=== PATIENT | female | born 2000 | race Caucasian/White ===

== ENCOUNTER 2020-04-18 21:45 | Inpatient (IN) | payer OTHER ==
[2020-04-18] MEDS ORDERED: DINOPROSTONE 10 MG VAGINAL SUPPOSITORY VG ONE (23:00)
[2020-04-18] MEDS ORDERED: DEXTROSE 5%-LACTATED RINGERS 1,000 ML IV SCH (23:00)
[2020-04-18 23:57] LABS: BASO % 0.2 % (0-2.0); EOS % 0.6 % (0-4.5); HEMATOCRIT 29.5 % (32.4-45.2); HEMOGLOBIN 9.8 GM/dL (10.7-15.3); LYMPH % 17.3 % (8-40); MCH 29.5 pg (25.7-33.7); MCHC 33.3 g/dl (32.0-36.0); MEAN CELL VOLUME 88.7 fl (80-96); MEAN PLT VOLUME 8.1 fl (7.5-11.1); MONO % 6.8 % (3.8-10.2); NEUT % 75.1 % (42.8-82.8); PLATELET COUNT 329 K/MM3 (134-434); RBC 3.32 M/mm3 (3.60-5.2); RDW 12.4 % (11.6-15.6); WHITE BLOOD COUNT 12.3 K/mm3 (4.0-10.0)
[2020-04-19 00:01] VITALS: BMI 23.1
[2020-04-19 00:28] LABS: INR 0.88 (0.83-1.09); PROTHROMBIN TIME (PATIENT) 10.4 SEC (9.7-13.0)
[2020-04-19 00:30] LABS: CALCIUM 8.6 mg/dL (8.5-10.1); CREATININE 0.4 mg/dL (0.55-1.3); POTASSIUM 3.6 mmol/L (3.5-5.1)
[2020-04-19 00:31] LABS: ACTIVATED PTT 25.6 SECONDS (25.2-36.5)
--- NOTE | 2020-04-19 03:46 | PN ---
Progress Note (short form) - Note Progress Note: 20 yo Primigravida, MILANA 04/30/20, EGA 38 weeks 2 days presented with ruptured membranes. VSS afebrile EFM - Baseline 130/min, moderate variability, accelerations, no decelerations Tocos - irregular Pelvic - cervix closed/long/posterior/vertex(bedside sonogram) Plan - Early term gestation with prelabor rupture of membranes for cervidil ripening Cervidil inserted, Anticipate vaginal delivery.
--- NOTE | 2020-04-19 07:11 | HP ---
Past Medical History - Admission Chief Complaint: Leakage of fluid History of Present Illness: 20 yo , @ 38 weeks gestation, EDC 04/30/20, admitted for spontaneous rupture of membrane. Upon admission she was finger tip. History Source: Patient Limitations to Obtaining History: No Limitations - Past Medical History ...: 1 ...Para: 0 ...Term: 0 ...: 0 ...Spon : 0 ...Induced : 0 ...Living Children: 0 ...Multiple Gestation: 0 ...EDC by Sono: 04/30/20 - Past Surgical History Past Surgical History: Yes: None Hx Myomectomy: No Hx Transabdominal Cerclage: No - Smoking History Smoking history: Never smoked Have you smoked in the past 12 months: No - Alcohol/Substance Use Hx Alcohol Use: No History of Substance Use: reports: None - Social History Usual Living Arrangement: Yes: With Parent History of Recent Travel: No Home Medications - Allergies Allergies/Adverse Reactions: Allergies Allergy/AdvReac Type Severity Reaction Status Date / Time No Known Allergies Allergy Verified 04/18/20 22:30 - Home Medications Home Medications: Ambulatory Orders Pnv No.95/Ferrous Fum/Folic AC [ Vitamin Tablet] 1 tab PO DAILY 04/18/20 Family Medical History Family History: Unremarkable Review of Systems - Review of Systems Constitutional: reports: No Symptoms Eyes: reports: No Symptoms HENT: reports: No Symptoms Neck: reports: No Symptoms Cardiovascular: reports: No Symptoms Respiratory: reports: No Symptoms Gastrointestinal: reports: No Symptoms Genitourinary: reports: Other (Leakage of fluid) Musculoskeletal: reports: No Symptoms Integumentary: reports: No Symptoms Neurological: reports: No Symptoms Psychiatric: reports: No Symptoms Pain Intensity: 3 Physical Exam - Maternity Vital Signs: Vital Signs Temperature 98.2 F 04/19/20 06:00 Pulse Rate 74 04/19/20 06:00 Respiratory Rate 20 04/19/20 06:00 Blood Pressure 116/63 04/19/20 06:00 O2 Sat by Pulse Oximetry (%) Constitutional: Yes: Well Nourished Eyes: Yes: Conjunctiva Clear HENT: Yes: Atraumatic Neck: Yes: Supple Cardiovascular: Yes: Regular Rate and Rhythm Lungs: Clear to auscultation - Abdominal Exam/OB Number of Fetuses: Single Presentation: Vertex - Vaginal Exam/OB Vaginal Bleeding: No Amniotic Membrane Status: Ruptured Nitrazine Test: Positive Amniotic Fluid: Yes: Clear Presentation: Vertex/Position Station: -3 - Physical Exam Musculoskeletal: Yes: WNL Extremities: Yes: WNL ...Motor Strength: WNL Psychiatric: Yes: Alert, Oriented - Labs Lab Results: CBC, BMP 04/18/20 23:47 04/18/20 23:47 Problem List - Problems (1) 38 weeks gestation of Problems reviewed: Yes Code(s): Z3A.38 - 38 WEEKS GESTATION OF (2) Rupture of membranes with clear amniotic fluid Problems reviewed: Yes Code(s): RHJ5509 - Assessment/Plan 38 weeks gestation Spontaneous rupture of membrane Admit to L&D Cervidil induction
[2020-04-19] MEDS: DEXTROSE 5%-LACTATED RINGERS 1,000 ML IV SCH ×2 (10:16→17:22)
[2020-04-19] MEDS ORDERED: BUTORPHANOL TARTRATE 1 MG/ML VIAL ONE ×4 (10:35→15:15)
[2020-04-19] MEDS ORDERED: PROMETHAZINE HCL 25 MG/1 ML VIAL ONE ×2 (10:36→15:16)
[2020-04-19] MEDS: PROMETHAZINE HCL 25 MG/1 ML VIAL IVPB PRN ×2 (10:40→16:03)
[2020-04-19] MEDS: BUTORPHANOL TARTRATE 1 MG/ML VIAL IVPUSH PRN ×2 (10:43→15:25)
--- NOTE | 2020-04-19 15:42 | PD.OB.PROG ---
Past Medical History - Primary Care Physician Documenting Provider Type: Laborist - Admission History of Present Illness: 20yo admitted for induction after PROM. Pt c/o contractions. Due for removal of cervidil - Nursing Documentation Maternal Triage Index: Maternal Triage Index ( Priority 3, Prompt MFTI) Hemorrhage Risk Assessment: Risk Level Low Risk High Level Risk Factors for None Hemorrhage Medium Level Risk Factors for None of the above Hemorrhage Low Level Risk Factors for None of the above Hemorrhage Nursing Documentation Reviewed: Yes - Past Medical History ...: 1 ...Para: 0 ...Term: 0 ...: 0 ...Spon : 0 ...Induced : 0 ...Living Children: 0 ...Multiple Gestation: 0 ...EDC by Sono: 04/30/20 - Past Surgical History Past Surgical History: Yes: None - Smoking History Smoking history: Never smoked Have you smoked in the past 12 months: No - Alcohol/Substance Use Hx Alcohol Use: No History of Substance Use: reports: None - Social History History of Recent Travel: No Review of Systems - Review of Systems Constitutional: reports: No Symptoms Eyes: reports: No Symptoms HENT: reports: No Symptoms Neck: reports: No Symptoms Cardiovascular: reports: No Symptoms Respiratory: reports: No Symptoms Gastrointestinal: reports: No Symptoms Genitourinary: reports: Pain Breasts: reports: No Symptoms Reported Musculoskeletal: reports: No Symptoms Integumentary: reports: No Symptoms Neurological: reports: No Symptoms Endocrine: reports: No Symptoms Hematology/Lymphatic: reports: No Symptoms Psychiatric: reports: No Symptoms Physical Exam - Obstetrical Vital Signs: Vital Signs Temperature 98.2 F 04/19/20 15:30 Pulse Rate 82 04/19/20 15:30 Respiratory Rate 04/19/20 15:30 Blood Pressure 132/77 04/19/20 15:30 O2 Sat by Pulse Oximetry (%) - Abdominal Exam/OB Fundal Height: 38 Number of Fetuses: Single Presentation: Vertex Contractions: Yes Regularity: Regular Intensity: Moderate Monitor Mode: External Heart Rate (range): 130 Category: I Accelerations: Uniform Decelerations: None - Vaginal Exam/OB Vaginal Bleeding: No Dilatation (cm): 1 Effacement (%): 50 Amniotic Membrane Status: Ruptured Presentation: Vertex/Position Station: -2 - Physical Exam Musculoskeletal: Yes: WNL Extremities: Yes: WNL - Labs Lab Results: CBC, BMP 04/18/20 23:47 04/18/20 23:47 Assessment/Plan 20yo P0 at term with PROM, cerividil cervidil #1 removed cat [address] Sanchez to be contacted.
[2020-04-19] MEDS ORDERED: OXYTOCIN 30 UNITS in 0.9% NS 30 UNIT/500 ML INFUS.BAG IVPB SCH (16:15)
[2020-04-19] MEDS ORDERED: OXYTOCIN 30 UNITS in 0.9% NS 30 UNIT/500 ML INFUS.BAG IVPB ONE (16:23)
--- NOTE | 2020-04-19 20:40 | PN ---
Progress Note (short form) - Note Progress Note: Patient seen and re-evaluated, She c/o moderate discomfort. FHR : Reassuring [place] : + regular contractions VE : /-2 Patient cannot tolerate the pain; she requests Consent signrd Anesthesia to see patient Problem List - Problems (1) 38 weeks gestation of Code(s): Z3A.38 - 38 WEEKS GESTATION OF (2) Rupture of membranes with clear amniotic fluid Code(s): ORJ8081 -
[2020-04-19] MEDS ORDERED: morphine SULFATE/PF 0.5 MG/ML (2cc Syringe - QUVA) EP ONE (20:55)
[2020-04-19] MEDS ORDERED: ONDANSETRON 4 MG/2 ML VIAL IVPUSH PRN (20:55)
[2020-04-19] MEDS ORDERED: morphine SULFATE/PF 0.5 MG/ML (2cc Syringe - QUVA) ONE (20:59)
[2020-04-19] MEDS ORDERED: ceFAZolin SODIUM 1 GM VIAL ONE (21:00)
[2020-04-19] MEDS ORDERED: OXYTOCIN 10 UNITS/ML VIAL ONE ×3 (21:28→21:41)
[2020-04-19] MEDS ORDERED: MIDAZOLAM HCL 2 MG/2 ML SINGLE DOSE VIAL ONE (21:40)
[2020-04-19] MEDS ORDERED: IBUPROFEN 800 MG/8 ML IJ IVPB PRN (22:06)
[2020-04-19] MEDS ORDERED: METHYLERGONOVINE MALEATE 0.2 MG/1 ML AMP IM PRN (22:06)
--- NOTE | 2020-04-19 22:11 | OP ---
Operative Note - Note: Operative Date: 04/19/20 Pre-Operative Diagnosis: Failure to progress / Failed medical induction Operation: Primary Low Transverse Findings: Baby girl in cephallic presentation Post-Operative Diagnosis: Same as Pre-op Surgeon: Lucie Sanchez Heel Dipper: Yelitza Aguayo Anesthesia: Spinal Specimens Removed: Placenta Estimated Blood Loss (mls): 600
[2020-04-19] MEDS ORDERED: OXYTOCIN 20 UNITS in 0.9% NS 20 UNIT/1,000 ML INFUS.BAG IV SCH (22:15)
--- NOTE | 2020-04-19 23:12 | PN ---
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 Dr. Aguayo
[2020-04-19] MEDS ORDERED: OXYTOCIN 20 UNITS in 0.9% NS 20 UNIT/1,000 ML INFUS.BAG IV ONE (23:43)
[2020-04-20] MEDS ORDERED: OXYTOCIN 20 UNITS in 0.9% NS 20 UNIT/1,000 ML INFUS.BAG IV ONE (02:05)
[2020-04-20 08:38] LABS: BASO % 0.2 % (0-2.0); EOS % 0.2 % (0-4.5); HEMATOCRIT 25.8 % (32.4-45.2); HEMOGLOBIN 8.3 GM/dL (10.7-15.3); LYMPH % 10.2 % (8-40); MCH 28.6 pg (25.7-33.7); MCHC 32.3 g/dl (32.0-36.0); MEAN CELL VOLUME 88.5 fl (80-96); MEAN PLT VOLUME 8.1 fl (7.5-11.1); NEUT % 83.4 % (42.8-82.8); PLATELET COUNT 271 K/MM3 (134-434); RBC 2.91 M/mm3 (3.60-5.2); RDW 12.6 % (11.6-15.6); WHITE BLOOD COUNT 16.3 K/mm3 (4.0-10.0)
[2020-04-20] MEDS: FERROUS SO4 325 MG TABLET (FP) PO SCH ×2 (09:19→17:53)
[2020-04-20] MEDS: PRENATAL VITAMINS W/ FOLIC ACID TABLET (FP) PO SCH (09:20)
[2020-04-20] MEDS: SIMETHICONE 80 MG TAB.CHEW (FP) PO PRN ×3 (09:28→23:17)
--- NOTE | 2020-04-20 09:47 | PN ---
Post Progress Note - Subjective Subjective: 20 yo Para 1 status post primary , seen and evaluated. She c/o incision pain. Post Day: 1 Type of Delivery: Primary C/S Vital Signs: Vital Signs Temperature 98.7 F 04/20/20 06:00 Pulse Rate 76 04/20/20 06:00 Respiratory Rate 18 04/20/20 06:00 Blood Pressure 109/62 04/20/20 06:00 O2 Sat by Pulse Oximetry (%) 100 04/19/20 23:00 Abdomen/GI: Yes: Abdomen soft Lochia: Yes: Rubra Lochia, amount: Small Activity: Other (She's lying in bed) - Labs Labs: CBC WBC 16.3 K/mm3 (4.0-10.0) H 04/20/20 07:38 RBC 2.91 M/mm3 (3.60-5.2) L 04/20/20 07:38 Hgb 8.3 GM/dL (10.7-15.3) L 04/20/20 07:38 Hct 25.8 % (32.4-45.2) L 04/20/20 07:38 MCV 88.5 fl (80-96) 04/20/20 07:38 MCH 28.6 pg (25.7-33.7) 04/20/20 07:38 MCHC 32.3 g/dl (32.0-36.0) 04/20/20 07:38 RDW 12.6 % (11.6-15.6) 04/20/20 07:38 Plt Count 271 K/MM3 (134-434) 04/20/20 07:38 MPV 8.1 fl (7.5-11.1) 04/20/20 07:38 Absolute Neuts (auto) 13.6 K/mm3 (1.5-8.0) H 04/20/20 07:38 Neutrophils % 83.4 % (42.8-82.8) H 04/20/20 07:38 Lymphocytes % 10.2 % (8-40) D 04/20/20 07:38 Monocytes % 6.0 % (3.8-10.2) 04/20/20 07:38 Eosinophils % 0.2 % (0-4.5) 04/20/20 07:38 Basophils % 0.2 % (0-2.0) 04/20/20 07:38 Nucleated RBC % 0 % (0-0) 04/20/20 07:38 Problem List - Problems (1) 38 weeks gestation of Problems reviewed: Yes Code(s): Z3A.38 - 38 WEEKS GESTATION OF (2) Rupture of membranes with clear amniotic fluid Problems reviewed: Yes Code(s): OMF8361 - (3) Status post primary low transverse section Problems reviewed: Yes Code(s): Z98.891 - HISTORY OF UTERINE SCAR FROM PREVIOUS SURGERY Assessment/Plan Status post primary Ambulation Analgesia as needed Continue routine post op care
--- NOTE | 2020-04-20 10:47 | PN ---
Progress Note (short form) - Note Progress Note: Anesthesia POD#1 S/P under spinal and Duramorph VSS, no N/V,pain is bearable, legs are recovering. No itch. Dori Dalton MD.
[2020-04-20] MEDS: IBUPROFEN 600 MG TABLET (FP) PO PRN ×2 (17:01→23:16)
--- NOTE | 2020-04-20 18:10 | OP ---
DATE OF OPERATION: 04/18/2020 PREOPERATIVE DIAGNOSIS: 38 weeks gestation with arrest of dilatation and also failed medical induction. POSTOPERATIVE DIAGNOSIS: 38 weeks gestation with arrest of dilatation and also failed medical induction. PROCEDURE: Primary low transverse section. SURGEON: Lucie Sanchez MD. BESSEMER BOTTOM MAKER: Yelitza Aguayo MD. ANESTHESIA: Spinal. COMPLICATIONS: None. ESTIMATED BLOOD LOSS: 600 mL. PROCEDURE: Patient was taken to the operating room where spinal anesthesia was administered. Patient was then prepped and draped in proper sterile fashion. A Pfannenstiel skin incision was made and carried down to the underlying layer of fascia. Fascia was incised in the midline and extended laterally. The inferior aspect of the fascial incision was then grasped with a Aspen clamp, elevated, and the rectus muscle dissected off bluntly. Attention was then turned to the superior aspect of the fascial incision, which in a similar fashion was then grasped with Aspen clamp, elevated, and the rectus muscle dissected off bluntly. The rectus muscle was then in the midline, the peritoneum identified and entered sharply with the Metzenbaum scissors. The peritoneal incision was extended superiorly and inferiorly with good visualization of the bladder. Then the vesicouterine peritoneum was then grasped with a pickup, and entered sharply with Metzenbaum scissors. This incision was extended laterally and a bladder flap created digitally. The bladder blade was inserted, and the lower uterine segment was incised using a 10-blade. This incision was extended laterally and the head delivered atraumatically. Nose and mouth were suctioned, and the cord clamped and cut. The infant was handed to the waiting bench manager. The placenta was removed manually. The uterus exteriorized and cleared of all clots and debris, the uterine incision was repaired using 0 Biosyn in a running locked fashion. The second layer of the same suture was used as a means to provide excellent hemostasis. Then the pelvis was completely irrigated, the uterus was returned to the abdomen. The peritoneum was closed using 2-0 Biosyn. The fascia was reapproximated using 0 Vicryl in a running fashion. The skin was closed in a subcuticular fashion using 3-0 Vicryl. Patient tolerated procedure well. Patient was then taken to PACU in stable condition. PATHOLOGY: Placenta. Tim [id number]
[2020-04-20] MEDS ORDERED: BISACODYL 10 MG SUPP.RECT RC PRN (22:06)
--- NOTE | 2020-04-21 06:50 | PN ---
Post Note - Post Date of Delivery: 04/19/20 Vital Signs: Vital Signs - 24 hr 04/20/20 04/20/20 04/20/20 07:00 08:00 09:00 Temperature Pulse Rate Respiratory 16 18 20 Rate Blood Pressure 04/20/20 04/20/20 04/20/20 10:00 11:00 12:00 Temperature 99.0 F Pulse Rate 93 H Respiratory 20 18 20 Rate Blood Pressure 113/58 L 04/20/20 04/20/20 04/20/20 13:00 14:00 15:00 Temperature 98.6 F Pulse Rate 84 Respiratory 20 20 18 Rate Blood Pressure 101/54 L 04/20/20 04/20/20 04/20/20 16:00 17:00 17:41 Temperature Pulse Rate Respiratory 20 20 20 Rate Blood Pressure 04/20/20 04/20/20 04/20/20 17:52 19:00 20:00 Temperature 98.5 F Pulse Rate 76 Respiratory 20 20 20 Rate Blood Pressure 130/83 04/20/20 20:16 Temperature 98.2 F Pulse Rate 73 Respiratory 20 Rate Blood Pressure 114/67 Labs: Laboratory Results - last 24 hr 04/18/20 04/20/20 04/20/20 23:47 00:25 07:38 WBC 16.3 H RBC 2.91 L Hgb 8.3 L Hct 25.8 L MCV 88.5 MCH 28.6 MCHC 32.3 RDW 12.6 Plt Count 271 MPV 8.1 Absolute Neuts (auto) 13.6 H Neutrophils % 83.4 H Lymphocytes % 10.2 D Monocytes % 6.0 Eosinophils % 0.2 Basophils % 0.2 Nucleated RBC % 0 COVID-19 (DAYRON) Not detected Screen Negative Baby's Blood Type O positive Unit Expiration Date 923846 - Subjective Subjective: No Complaints, Ambulating, Tolerating Diet - Objective Afebrile: Yes Breast: Not engorged Abdomen: Soft, Non-tender, Other (dressing dry and intact) Uterus: Fundus firm Vagina: Scant lochia Extremities: Non-tender - Assessment/Plan (1) Status post primary low transverse section Assessment: Other (continue present management pt desires to go home tomorrow) Plan: Routine Care (2) Anemia Plan: Other (ferrous sulfate bid)
[2020-04-21] MEDS: FERROUS SO4 325 MG TABLET (FP) PO SCH ×2 (08:00→17:32)
[2020-04-21] MEDS: IBUPROFEN 600 MG TABLET (FP) PO PRN ×3 (08:08→20:32)
[2020-04-21] MEDS: SIMETHICONE 80 MG TAB.CHEW (FP) PO PRN ×3 (08:08→20:32)
[2020-04-21 08:31] LABS: POC NITRAZINE POS
[2020-04-21] MEDS: PRENATAL VITAMINS W/ FOLIC ACID TABLET (FP) PO SCH (10:07)
[2020-04-22] MEDS: IBUPROFEN 600 MG TABLET (FP) PO PRN (05:42)
--- NOTE | 2020-04-22 06:48 | DS ---
Physical Exam-CAS[employer] FLOOR PERSON Vital Signs: Vital Signs Temperature 97.5 F L 04/21/20 22:00 Pulse Rate 98 H 04/21/20 22:00 Respiratory Rate 18 04/21/20 22:00 Blood Pressure 121/74 04/21/20 22:00 O2 Sat by Pulse Oximetry (%) 100 04/21/20 09:00 Constitutional: Yes: Well Nourished Eyes: Yes: Conjunctiva Clear HENT: Yes: Atraumatic Neck: Yes: Supple Cardiovascular: Yes: Regular Rate and Rhythm Respiratory: Yes: Regular Gastrointestinal: Yes: Normal Bowel Sounds External Genitalia: Yes: Normal Vaginal Exam: Yes: Normal Cervix: Yes: Normal Uterus: Yes: Firm Wound/Incision: Yes: Well Approximated, Steri Strips (in place) Neurological: Yes: Alert, Oriented ...Motor Strength: WNL Psychiatric: Yes: Alert, Oriented Labs: CBC, BMP 04/20/20 07:38 04/18/20 23:47 Delivery - Delivery Type of Anesthesia: Spinal EBL (cc): 600 Delivery, Single - Stages of Labor Date 1st Stage Initiatied: 04/19/20 Time 1st Stage Initiated: 21:00 Date of Delivery: 04/19/20 Time of Delivery: 21:30 Time Placenta Delivered: 21:31 - Condition of Director Writing/Administrative Specialist Present: Yes Infant Gender: Female Weight: 5 lb 9 oz Position: Left, OA Total Hours ROM (Hrs/Mins): 24 HOURS/ 30 MINUTES - Feeding Plan Initial Plan: Elected not to breastfeed exclusively throughout hospitalization Discharge Summary Problems reviewed: Yes Reason For Visit: LABOR Current Active Problems 38 weeks gestation of (Acute) Anemia (Acute) Rupture of membranes with clear amniotic fluid (Acute) Status post primary low transverse section (Acute) Procedures: Principal: Primary Low Transverse Hospital Course: Routine post op care Health Concerns: None Plan of Treatment: Analgesia as needed Ambulation F/U with MD in one week Goals: Resume regular activities in 4-6 weeks Condition: Good - Instructions Diet, Activity, Other Instructions: Regular diet No driving, no lifting for 4 weeks F/U with MD in one week Disposition: HOME - Home Medications Comprehensive Discharge Medication List: Ambulatory Orders Pnv No.95/Ferrous Fum/Folic AC [ Vitamin Tablet] 1 tab PO DAILY 04/18/20
[2020-04-22 08:57] LABS: BASO % 0.3 % (0-2.0); EOS % 1.1 % (0-4.5); HEMATOCRIT 25.9 % (32.4-45.2); HEMOGLOBIN 8.4 GM/dL (10.7-15.3); LYMPH % 15.2 % (8-40); MCH 28.7 pg (25.7-33.7); MCHC 32.3 g/dl (32.0-36.0); MEAN CELL VOLUME 88.7 fl (80-96); MEAN PLT VOLUME 7.9 fl (7.5-11.1); MONO % 6.3 % (3.8-10.2); NEUT % 77.1 % (42.8-82.8); PLATELET COUNT 343 K/MM3 (134-434); RBC 2.92 M/mm3 (3.60-5.2); WHITE BLOOD COUNT 12.3 K/mm3 (4.0-10.0)
[2020-04-22] MEDS: FERROUS SO4 325 MG TABLET (FP) PO SCH (09:18)
[2020-04-22] MEDS: PRENATAL VITAMINS W/ FOLIC ACID TABLET (FP) PO SCH (09:18)
[2020-04-22 10:39] VITALS: BP 129/65; PULSE 89; TEMP 98.2
--- NOTE | 2020-04-22 17:30 | PATH ---
Surgical Pathology Report Patient Name: ENRIKE LORENZO Med. Rec. #: [id number] /Age/Gender: 2000 (Age: 20) / F Account: [id number] Location: [facility] [employer] Taken: 04/19/2020 Received: 04/20/2020 Reported: 04/22/2020 Physicians: Lucie Sanchez M.D. Specimen(s) Received PLACENTA Clinical History 20-year-old with no medical history or surgical history Primary for failure to progress Final Diagnosis PLACENTA: THIRD TRIMESTER PLACENTA WITH SUBCHORIONIC FIBRIN DEPOSITION. TRIVASCULAR CORD. MEMBRANES WITH NO DIAGNOSTIC ABNORMALITIES. Electronically Signed Jose Blake M.D. Gross Description The specimen is received fresh labeled placenta and is a 370 gram, 16.5 x 11.5 x 2.8 cm. placenta with attached membranes and umbilical cord. The attached membranes are gomes, translucent with focal opacities and insert marginally. The umbilical cord measures 34 cm. in length and averages 1 cm. in diameter. The cord inserts eccentrically, 2.5 cm. to the nearest margin. No true knots or strictures are identified. Cut surface of the umbilical cord reveals 3 vessels. The surface is hernandez-blue with minimal fibrin deposition and appropriate caliber vessels. The maternal surface is red-brown with focal defects. Sectioning reveals red-brown, spongy parenchyma. No lesions are identified. Back Padder sections are submitted in three cassettes as follows: 1- membrane rolls and umbilical cord; 2-3- full thickness sections of placenta. /04/20/2020 saudi/04/20/2020
== END 2020-04-22 13:01 | disposition home or self-care (01) | DRG 540 ==
LOC: JDEL 21:45 → JLDR 22:00 → J3W 04-20 02:30
PROVIDERS: ADMIT Obstetrics & Gynecology; ATTEND Obstetrics & Gynecology
PROC: 10D00Z1 Extraction of Products of Conception, Low, Open Approach (ICD-10-PCS; principal; 2020-04-18)
DX: O62.0 Primary inadequate contractions (principal); O61.0 Failed medical induction of labor; O99.02 Anemia complicating childbirth; D64.9 Anemia, unspecified; Z3A.38 38 weeks gestation of pregnancy; Z37.0 Single live birth
CPT/HCPCS: 36415; 80048; 83986-QW; 85025; 85461; 85610; 85730; 86780; 86850; 86900; 86901; 86999; 88307-TC; U0003

== ENCOUNTER 2022-09-03 15:17 | Emergency (ER) | payer OTHER ==
[2022-09-03 15:49] VITALS: BP 114/58; PULSE 87; RESP 18; TEMP 97.8; BMI 18.8
[2022-09-03] MEDS ORDERED: ACETAMINOPHEN 325 MG TABLET (FP) PO ONE (16:55)
[2022-09-03] MEDS ORDERED: ACETAMINOPHEN 325 MG TABLET (FP) ONE (16:57)
[2022-09-03 17:23] LABS: BASO % 0.3 % (0-2.0); EOS % 0.6 % (0-4.5); HEMATOCRIT 37.8 % (32.4-45.2); HEMOGLOBIN 12.7 GM/dL (10.7-15.3); LYMPH % 17.5 % (8-40); MCH 30.5 pg (25.7-33.7); MCHC 33.5 g/dl (32.0-36.0); MEAN CELL VOLUME 91.1 fl (80-96); MEAN PLT VOLUME 7.2 fl (7.5-11.1); MONO % 4.2 % (3.8-10.2); NEUT % 77.4 % (42.8-82.8); PLATELET COUNT 448 10^3/uL (134-434); RBC 4.15 M/mm3 (3.60-5.2); RDW 12.7 % (11.6-15.6); WHITE BLOOD COUNT 9.8 K/mm3 (4.0-10.0)
[2022-09-03 17:30] LABS: INR 1.03 (0.83-1.09); PROTHROMBIN TIME (PATIENT) 11.9 SEC (9.7-13.0)
[2022-09-03 17:46] LABS: ALBUMIN 3.9 g/dl (3.4-5.0); BLOOD UREA NITROGEN 10.9 mg/dL (7-18); CALCIUM 9.2 mg/dL (8.5-10.1); MAGNESIUM 2.1 mg/dL (1.8-2.4)
[2022-09-03 17:50] LABS: CREATININE 0.6 mg/dL (0.55-1.3)
[2022-09-03 17:51] LABS: BILIRUBIN,TOTAL 0.2 mg/dL (0.2-1); TOT PROT 7.2 g/dl (6.4-8.2)
[2022-09-03] MEDS ORDERED: METHOCARBAMOL 500 MG TABLET PO ONE (18:11)
[2022-09-03] MEDS ORDERED: IBUPROFEN 400 MG TABLET (FP) PO ONE ×3 (18:12→18:13)
[2022-09-03] MEDS ORDERED: METHOCARBAMOL 500 MG TABLET ONE (18:13)
== END 2022-09-03 18:55 | disposition home or self-care (01) ==
LOC: JER 15:17 → JERFT 15:17
DX: M62.838 Other muscle spasm (principal); R53.83 Other fatigue
CPT/HCPCS: 0241U-QW; 36415; 71046-TC-FY; 80053; 83735; 85025; 85610; 86850; 86900; 86901; 93005; 93010; 99285-25

== ENCOUNTER 2025-01-28 15:47 | Emergency (ER) | payer OTHER ==
[2025-01-28 15:54] VITALS: BP 120/75; PULSE 87; RESP 18; TEMP 98.5; BMI 18.3
== END 2025-01-28 16:40 | disposition home or self-care (01) ==
LOC: JERFT 15:47
DX: R59.0 Localized enlarged lymph nodes (principal)
CPT/HCPCS: 99282-25